=== PATIENT | male | born 1990 | race American Indian/Alaskan Native ===

== ENCOUNTER 2016-10-27 03:00 | Inpatient (IN) | payer MEDICAID, OTHER ==
[2016-10-27 03:02] VITALS: BMI 19.2
--- NOTE | 2016-10-27 03:28 | C.PDOC ---
History Of Present Illness Patient, with a past medical history of schizophrenia, is brought to the ED by ambulance for homicidal ideation. Patient has been smoking weed all day. He was found screaming at [facility]. Patient was saying he was going to kill everyone that hurts his loved ones. Patient denies all other complaints at this time. Time Seen by Provider: 10/27/16 03:28 Chief Complaint (Nursing): Psychiatric Evaluation History Per: Patient History/Exam Limitations: clinical condition Onset/Duration Of Symptoms: Other Current Symptoms Are (Timing): Still Present Suicide/Self Injury Attempted (Context): None Modifying Factor(s): None Severity: None Pain Scale Rating Of: 0 Associated Symptoms: Other Recent travel outside of the [place]: No Additional History Per: EMS Past Medical History Reviewed: Historical Data, Nursing Documentation, Vital Signs Vital Signs: Last Vital Signs Temp 98.2 F 10/27/16 03:11 Pulse 92 H 10/27/16 03:11 Resp 20 10/27/16 03:11 BP 147/85 10/27/16 03:11 Pulse Ox 99 10/27/16 04:13 - Medical History PMH: Schizophrenia Family History: States: Unknown Family Hx - Social History Hx Alcohol Use: Yes Hx Substance Use: Yes - Immunization History Hx Tetanus Toxoid Vaccination: No Hx Influenza Vaccination: No Hx Pneumococcal Vaccination: No Review Of Systems Constitutional: Negative for: Fever, Chills Cardiovascular: Negative for: Chest Pain Respiratory: Negative for: Shortness of Breath Gastrointestinal: Negative for: Nausea, Vomiting Psych: Positive for: Other (homicidal ideation). Negative for: Suicidal ideation Physical Exam - Physical Exam Appears: Non-toxic, No Acute Distress, Other (uncooperative) Skin: Warm, Dry Head: Atraumatic, Normacephalic Neck: Supple Chest: Symmetrical Cardiovascular: Rhythm Regular Respiratory: No Accessory Muscle Use Extremity: Normal ROM ED Course And Treatment - Laboratory Results Result Diagrams: 10/27/16 04:06 10/27/16 04:06 O2 Sat by Pulse Oximetry: 99 (RA) Pulse Ox Interpretation: Normal Progress Note: vitals stable. 4a vitals stable Disposition Counseled Patient/Family Regarding: Studies Performed, Diagnosis - Disposition Disposition Time: 03:28 Condition: UNKNOWN - Clinical Impression Clinical Impression: Acute undifferentiated schizophrenia - Scribe Statement The provider has reviewed the documentation as recorded by the Leydi Kemp Provider Attestation: All medical record entries made by the Scribe were at my direction and personally dictated by me. I have reviewed the chart and agree that the record accurately reflects my personal performance of the history, physical exam, medical decision making, and the department course for this patient. I have also personally directed, reviewed, and agree with the discharge instructions and disposition. Physician Patient Turnover Patient Signed Over To: Philip Barney DO Handoff Comments: pending [facility] screeners
[2016-10-27 03:59] LABS: RBC URINE 1 /hpf (0-3); URINE BILIRUBIN NEGATIVE (NEGATIVE); URINE BLOOD NEGATIVE (NEGATIVE); URINE COLOR Yellow (YELLOW); URINE GLUCOSE (UA) NORMAL (Normal); URINE KETONE NEGATIVE (NEGATIVE); URINE LEUKOCYTE ESTERASE NEG Leu/uL (Negative); URINE PROTEIN NEGATIVE (NEGATIVE); WBC URINE 2 /hpf (0-5)
[2016-10-27 04:13] LABS: BASO # 0.1 K/uL (0.0-0.2); BASO % 0.8 % (0.0-2.0); EOS # 0.1 K/uL (0.0-0.7); HEMATOCRIT 39.6 % (35.0-51.0); LYMPH # 2.2 K/uL (1.0-4.3); LYMPH % 19.4 % (20.0-40.0); MEAN CELL VOLUME 88.2 fL (80.0-94.0); MEAN CORPUSCULAR HEMOGLOBIN 29.8 pg (27.0-31.0); MEAN CORPUSCULAR HGB CONC 33.8 g/dL (33.0-37.0); MEAN PLATELET VOLUME 9.6 fL (7.2-11.7); MONO # 0.6 K/uL (0.0-0.8); MONO % 5.7 % (0.0-10.0); NRBC % 0.1 % (0.0-2.0); RED CELL DISTRIBUTION WIDTH 12.8 % (11.5-14.5); WHITE BLOOD COUNT 11.1 K/uL (4.8-10.8)
[2016-10-27 04:24] LABS: CHLORIDE 101 mmol/L (98-107); POTASSIUM 3.7 mmol/L (3.6-5.2); SODIUM 139 mmol/L (132-148)
[2016-10-27 04:26] LABS: BILIRUBIN,TOTAL 1.2 mg/dL (0.2-1.3); CARBON DIOXIDE 23 mmol/L (22-30); GFR AFRICAN-AMERICAN > 60
[2016-10-27 04:27] LABS: ALB/GLOB RATIO 1.5 (1.0-2.1); ALCOHOL SERUM < 10 mg/dl (0-10); ALKALINE PHOSPHATASE 71 U/L (38-126); ALT/SGPT 33 U/L (21-72); AST/SGOT 24 U/L (17-59); BLOOD UREA NITROGEN 5 mg/dL (9-20); CALCIUM 8.8 mg/dl (8.6-10.4); GLUCOSE,RANDOM 89 mg/dL (75-110); TOTAL PROTEIN 7.8 g/dL (6.3-8.3)
--- NOTE | 2016-10-27 11:50 | PCM.PSYCH ---
Initial Psychiatric Evaluation - Initial Psychiatric Evaluation Type of Admission: Voluntary Chief Complaint (in patient's own words): "I need a job" History of Present Illness and Precipitating Events: This is a 30-year-old mixed-race male, single, no child, unemployed. He lives with a friend in [place]. The patient is a very poor historian and has minimal insight. The patient was brought in by the police and EMS after his girlfriend called 911 because he was agitated, delusional thinking he was God or in touch with God and that God was telling him to do bad things. He was medicated in the ER and seen in the morning when he was somewhat calmer and more cooperative. He denied suicidal and homicidal ideations, but he was quite thought disordered, tangential/circumstantial and still grandiose. He admitted to being in another hospital recently and noncompliant with medications. However , he said that he now wants to continue medications and leave hospital to find a job. He claims his girlfriend is and he wants to be a father. Past psych history: 2 previous admissions one in 2014 at [facility] and 2 weeks ago in [place] at [facility]. He was on Zyprexa and some other medications that he couldn't remember. He is positive for marijuana but he denies drug and alcohol use. Medical history: Denies Family psych history: He denies Current Medications: Active Medications Generic Name Dose Route Start Last Admin Trade Name Freq PRN Reason Stop Dose Admin Benztropine Mesylate 1 mg 10/27/16 08:48 Cogentin PO Q1H PRN EPS, dystonia, max 4x/24h Haloperidol 5 mg 10/27/16 08:48 Haldol PO Q1H PRN agitation, max 4x/24h Lorazepam 2 mg 10/27/16 08:48 Ativan PO Q1H PRN anxiety/agitation max 4x/24h Risperidone 1 mg 10/27/16 10:00 10/27/16 09:58 Risperdal Tab PO 1 mg BID CORBY Administration Past Psychiatric History - Past Psychiatric History Previous Treatment History: Inpatient Pertinent Medical Hx (Current Medical&Sleep Prob, Allergies): Allergies Allergy/AdvReac Type Severity Reaction Status Date / Time No Known Allergies Allergy Verified 10/21/15 11:57 No Known Home Med 10/27/16 Review of Systems - Psychiatric Psychiatric: Abnormal Sleep Pattern, Anxiety, Behavioral Changes, Difficulty Concentrating, Irritability, Mood Swings. absent: Hallucinations, Homicidal Ideation, Suicidal Ideation Mental Status Examination - Personal Presentation Personal Presentation: Looks older than stated age - Affect Affect: Constricted - Motor Activity Motor Activity: Psychomotor Agitation - Reliability in Providing Information Reliability in Providing Information: Fair - Speech Speech: Disorganized - Mood Mood: Other (irate and labile) - Formal Thought Process Formal Thought Process: Delusions, Paranoia, Loosening of associations, Circumstantial - Hallucinations/Delusions Delusions: Granduer - Cognitive Functions Orientation: Person, Place, Time Sensorium: Alert Attention/Concentration: Easily distracted Abstract Thinking: [place] Estimate of Intelligence: Average Judgement: Imparied, as evidence by: Poor judgement, Intact, as evidence by: Insight regarding need for hospitalization Memory: Recent intact, as evidence by: Ability to recall events of the day, Remote impaired as evidenced by: Inability to recall sig life events - Risk Risk: Diminished functioning - Strength & Assets Inventory Strength & Assets Inventory: Family support, Cooperative - Limitations Limitations: Living alone DSM 5 DX - DSM 5 DSM 5 Diagnosis: Bipolar I d/o - manic r/o schizoaffective d/o - bipolar type Cannabis use d/o - severe r/o synthetic cannabis use - Recommended/Plan of Treatment Treatment Recommendations and Plan of Treatment: Abilify 10 mg but will increase Abilify Maintena when he si on 20 mg Transfer to Support and psychoed, attend groups and activities [place] and CBt Family meeting As needed meds 33 min Projected ELOS: 5 days Prognosis: fair to good Discharge Plan and Discharge Criteria: No agitation, eliud refer to [facility]
[2016-10-27 14:56] VITALS: O2SAT 98
[2016-10-28] MEDS: Divalproex 500 mg DR Tab PO SCH ×2 (09:26→17:56)
--- NOTE | 2016-10-28 11:17 | PCM.PYCHPN ---
Psychiatric Progress Note - Psychiatric Progress Note Patient seen today, length of contact: 15 min Patient Chief Complaint: 'I want to the [place] and [place] to get my body's pieces.' Problems Identified/Issues Discussed: Patient seen and evaluated, chart reviewed and discussed with the nurse. Patient remained very disorganized and internally preoccupied. He states that, ' I want to go to [place], [place] and [place] to get my body's pieces.' Patient still appears paranoid, psychotic and delusional. He reports He still reports of hearing voices telling him to do different things but not to harm himself or harm anyone. He is taking medication and denies any side effects. Supportive therapy and psychoeducation were given. Medication Change: Yes (Start Prolixin, Start Cogentin) Medical Record Reviewed: Yes Mental Status Examination - Cognitive Function Orientation: Person, Place, Time Memory: Intact Attention: Poor Concentration: Poor Association: Loose Fund of Knowledge: Poor - Mood Mood: Anxious, Other (irate and labile) - Affect Affect: Broad - Speech Speech: Pressured - Formal Thought Process Formal Thought Process: Hallucinations, Delusions, Paranoia, Loosening of associations, Flight of ideas, Circumstantial - Suicidal Ideation Suicidal Ideation: No - Homicidal Ideation Homicidal Ideation: No Goal/Treatment Plan - Goal/Treatment Plan Need for Continued Stay: Discharge may exacerbated symptoms, Severe functional impairment Progress Toward Problem(s) and Goals/Treatment Plan: Bipolar I d/o - manic r/o schizoaffective d/o - bipolar type Cannabis use d/o - severe r/o synthetic cannabis use Abilify 10 mg Abilify Maintena Prolixin 5 mg by mouth twice a day Cogentin 1 mg by mouth twice a day Depakote 500 mg by mouth twice a day - Smoking Cessation Smoking Cessation Initiated: No
[2016-10-29] MEDS: Divalproex 500 mg DR Tab PO SCH ×2 (09:41→18:20)
--- NOTE | 2016-10-29 12:30 | PCM.PYCHPN ---
Psychiatric Progress Note - Psychiatric Progress Note Patient seen today, length of contact: 15 min Patient Chief Complaint: I want to leave Problems Identified/Issues Discussed: Patient seen and evaluated, chart reviewed and discussed with the nurse. As per the staff patient remained up whole night and was pacing back and forth in the hallways. Patient still appears paranoid, psychotic and delusional. Patient remained disorganized and internally preoccupied with his travel to the unknown countries. He reports improvement in his voices and denies any suicidal ideation or homicidal ideation. He is taking medication and denies any side effects. Supportive therapy and psychoeducation were given. Medication Change: Yes (start Klonopin) Medical Record Reviewed: Yes Mental Status Examination - Cognitive Function Orientation: Person, Place, Time Memory: Intact Attention: Poor Concentration: Poor Association: Loose Fund of Knowledge: Poor - Mood Mood: Anxious, Other (irate and labile) - Affect Affect: Broad - Speech Speech: Loud - Formal Thought Process Formal Thought Process: Hallucinations, Delusions, Paranoia, Loosening of associations, Circumstantial - Suicidal Ideation Suicidal Ideation: No - Homicidal Ideation Homicidal Ideation: No Goal/Treatment Plan - Goal/Treatment Plan Need for Continued Stay: Discharge may exacerbated symptoms, Severe functional impairment, Other Progress Toward Problem(s) and Goals/Treatment Plan: Bipolar I d/o - manic r/o schizoaffective d/o - bipolar type Cannabis use d/o - severe r/o synthetic cannabis use Abilify 10 mg Abilify Maintena Prolixin 5 mg by mouth twice a day Cogentin 1 mg by mouth twice a day Depakote 500 mg by mouth twice a day Klonopin 1 mg by mouth twice a day - Smoking Cessation Smoking Cessation Initiated: No
[2016-10-30] MEDS ORDERED: DiphenhydrAMINE 50 mg/ml Inj IM STA (02:20)
[2016-10-30] MEDS: Divalproex 500 mg DR Tab PO SCH (10:35)
--- NOTE | 2016-10-30 14:41 | PCM.PYCHPN ---
Psychiatric Progress Note - Psychiatric Progress Note Patient seen today, length of contact: 26 min Patient Chief Complaint: "I feel calm" Problems Identified/Issues Discussed: The pt is seen, chart reviewed, case discussed with staff. Pt continues to be disoriented and disorganized. He was agitated last night and had unsteady gait due to prn meds. Pt states that there are spirits that talk through him. He states the spirits give him the strength to help people that cannot help themselves. He states he feels calm and relaxed. Pt slept well the night before. His meds are all decreased today due to oversedation. He was better at night, per staff. He was not delirious and VS were stable. [employer] spoke to his mo with his permission. She agreed to come for a meeting Wed at 11 am Aftercare discussed, support and psychoeducation given. As per notes, he is currently on probation for possession of a machete. It is not clear where he can go if there is a warrant for his arrest Medical Problems: Denies Medication Change: Yes (hold most meds) Medical Record Reviewed: Yes Mental Status Examination - Cognitive Function Orientation: Person, Place, Time Memory: Intact Attention: Poor Concentration: Poor Association: Loose Fund of Knowledge: Poor - Mood Mood: Anxious, Other (irritable and labile) - Affect Affect: Broad - Speech Speech: Appropriate - Formal Thought Process Formal Thought Process: Hallucinations, Delusions, Loosening of associations, Flight of ideas, Circumstantial - Suicidal Ideation Suicidal Ideation: No - Homicidal Ideation Homicidal Ideation: No Goal/Treatment Plan - Goal/Treatment Plan Need for Continued Stay: Discharge may exacerbated symptoms, Severe functional impairment, Other Progress Toward Problem(s) and Goals/Treatment Plan: [facility] when available As needed meds Support and psychoeducation Attend groups and activities [place] and CBT Family meeting Labs and VS Meds held but will resume dc Klonopin and prolixin - he is too sedated and Parkinsonized. - Smoking Cessation Smoking Cessation Initiated: Yes
[2016-10-31] MEDS ORDERED: ABILIFY MAINTENA 400 MG IM ONE ×2 (10:00→13:00)
[2016-10-31] MEDS: Divalproex 500 mg DR Tab PO SCH ×2 (10:04→17:22)
--- NOTE | 2016-10-31 16:03 | PCM.PYCHPN ---
Psychiatric Progress Note - Psychiatric Progress Note Patient seen today, length of contact: 25 min Patient Chief Complaint: "I'm fine" Problems Identified/Issues Discussed: Pt is seen, chart reviewed, case discussed. Pt states that his mood is okay today. He remains anxious. Pt denies shaking or other symptoms. When asked about his plan, he states that he plans on changing the world's pollution and . Aftercare discussed, support and psychoeducation given. Medical Problems: Denies Medication Change: Yes (Propranolol Hcl, scheduled to receive Abilify maintence depot today ) Medical Record Reviewed: Yes Mental Status Examination - Cognitive Function Orientation: Person, Place, Situation, Time Memory: Intact Attention: WNL Concentration: Poor Association: Loose Fund of Knowledge: Poor - Mood Mood: Anxious - Affect Affect: Broad - Speech Speech: Appropriate - Formal Thought Process Formal Thought Process: Hallucinations, Delusions, Flight of ideas, Circumstantial - Suicidal Ideation Suicidal Ideation: No - Homicidal Ideation Homicidal Ideation: No Goal/Treatment Plan - Goal/Treatment Plan Need for Continued Stay: Discharge may exacerbated symptoms, Severe functional impairment, Other Progress Toward Problem(s) and Goals/Treatment Plan: Abilify Maintenance when available Started Propranolol Hcl As needed meds Support and psychoeducation Attend groups and activities [place] and CBT Family meeting Estimated Date of D/C: 11/03/16 - Smoking Cessation Smoking Cessation Initiated: Yes
[2016-11-01] MEDS: Divalproex 500 mg DR Tab PO SCH ×2 (17:37→21:52)
--- NOTE | 2016-11-01 22:54 | PCM.PYCHPN ---
Psychiatric Progress Note - Psychiatric Progress Note Patient seen today, length of contact: 28 min Patient Chief Complaint: "I need to leave" Problems Identified/Issues Discussed: Pt is seen, chart reviewed, case discussed. We had a meeting with his mother who came early and reported that she had been visiting him and that he was still manic and delusional. At the meeting, he, again, showed that he doesn't have enough insight and was grandiose, religiously-preoccupied and irate. He believes he is here to save other patients. He implied he won;t take meds and that he is not sick. Psychoed and support given by everyone. Despite lack of commitment he does take his meds and got the Abilify shot. Medical Problems: Denies Medication Change: Yes (increase doses) Medical Record Reviewed: Yes Mental Status Examination - Cognitive Function Orientation: Person, Place, Situation, Time Memory: Intact Attention: WNL Concentration: Poor Association: Loose Fund of Knowledge: Poor - Mood Mood: Anxious - Affect Affect: Broad - Speech Speech: Appropriate - Formal Thought Process Formal Thought Process: Hallucinations, Delusions, Flight of ideas, Circumstantial - Suicidal Ideation Suicidal Ideation: No - Homicidal Ideation Homicidal Ideation: No Goal/Treatment Plan - Goal/Treatment Plan Need for Continued Stay: Discharge may exacerbated symptoms, Severe functional impairment, Other Progress Toward Problem(s) and Goals/Treatment Plan: Abilify Maintenance when available Started Propranolol Hcl As needed meds Support and psychoeducation Attend groups and activities [place] and CBT Family meeting Estimated Date of D/C: 11/03/16
[2016-11-02] MEDS: Divalproex 500 mg DR Tab PO SCH ×3 (09:42→17:21)
--- NOTE | 2016-11-02 22:26 | PCM.PYCHPN ---
Psychiatric Progress Note - Psychiatric Progress Note Patient seen today, length of contact: 17 min Patient Chief Complaint: "I'm fine, I'd like to leave tomorrow" Problems Identified/Issues Discussed: The pt is seen, chart reviewed, case discussed with staff. The pt is compliant with medications and reports no side-effects. Symptoms are improving but needs more time to stabilize. Still hypomanic After care discussed, support and psychoeducation given. Mo wants to take him tomorrow [place] and CBT used briefly. Medical Problems: Denies Medication Change: Yes Medical Record Reviewed: Yes Mental Status Examination - Cognitive Function Orientation: Person, Place, Situation, Time Memory: Intact Attention: WNL Concentration: Poor Association: Loose Fund of Knowledge: Poor - Mood Mood: Anxious - Affect Affect: Broad - Speech Speech: Appropriate - Formal Thought Process Formal Thought Process: Delusions, Circumstantial - Suicidal Ideation Suicidal Ideation: No - Homicidal Ideation Homicidal Ideation: No Goal/Treatment Plan - Goal/Treatment Plan Need for Continued Stay: Discharge may exacerbated symptoms, Severe functional impairment, Other Progress Toward Problem(s) and Goals/Treatment Plan: Abilify Maintena given Abilify 30 mg nother 10 days Propranolol Hcl As needed meds Support and psychoeducation Attend groups and activities [place] and CBT Family meeting Estimated Date of D/C: 11/03/16
[2016-11-03 07:46] VITALS: BP 108/58; PULSE 69; RESP 19; TEMP 97.7
--- NOTE | 2016-11-03 09:41 | PCM.PYCHDC ---
Mental Status Examination - Mental Status Examination Orientation: Person, Place, Situation, Time Memory: Intact Mood: Anxious Affect: Constricted Speech: Pressured (less so) Attention: Poor Concentration: Poor Association: WNL Fund of Knowledge: WNL Formal Thought Process: No Impairment Suicidal Ideation: No Current Homicidal Ideation?: No Discharge Summary - Discharge Note Reason for Hospitalization: Manic episode; agitation, aggression, grandiosity. Psychiatric History (includes Medical, Family, Personal Hx): 2 more admissions. Bipolar Consultations:: List each consultation separately and include: 1. Reason for request. 2. Findings. 3. Follow-up Summary of Hospital Course include:: 1. Description of specific treatment plan utilized for patients during their course of treatmen. 2. Summarize the time- course for resolution of acute symptoms and/or regressed behaviors. 3. Describe issues identified and worked on during hospitalization. 4. Describe medication utilized. 5. Describe medical problems identified and treated. 6. Reassessment of suicide risk Summary of Hospital Course: He is seen again, case discussed. On admission: This is a 30-year-old mixed-race male, single, no child, unemployed. He lives with a friend in [place]. The patient is a very poor historian and has minimal insight. The patient was brought in by the police and EMS after his girlfriend called 911 because he was agitated, delusional thinking he was God or in touch with God and that God was telling him to do bad things. He was medicated in the ER and seen in the morning when he was somewhat calmer and more cooperative. He denied suicidal and homicidal ideations, but he was quite thought disordered, tangential/circumstantial and still grandiose. He admitted to being in another hospital recently and noncompliant with medications. However , he said that he now wants to continue medications and leave hospital to find a job. He claims his girlfriend is and he wants to be a father. Past psych history: 2 previous admissions one in [address] [facility] and 2 weeks ago in [facility]. He was on Zyprexa and some other medications that he couldn't remember. He is positive for marijuana but he denies drug and alcohol use. Medical history: Denies Family psych history: He denies Hospital course: The pt was admitted and started on treatment with psychotherapy, support, psychoeducation and medications. [place] and CBT used. The pt attended groups and activities, as well as milieu therapy. family meeting held with mother. All the risks and benefits of medications are discussed and the patient understood and agreed. After care discussed with the patient. He agreed to go to [facility] He improved slowly and was quite delusional and manic during his stay. Preoccupied with restorationism/spiritual themes. His substance use is also addressed with DC He was not 100% well on d/c but he refused to stay longer and his mo wanted him for the . risks of early leave discussed. He is given an Abilify Maintena shot due to poor adherence - Final Diagnosis (DSM 5) Condition upon Discharge: GOOD DSM 5: Bipolar I - manic, severe Cannabis use d/o Disposition: HOME/ ROUTINE Follow-up Treatment Plan: Continue below medications after discharge. Due to a glitch in EMR not all meds are uploaded here, ie Depakote 1500 mg/d Blood work in [facility] Follow after care plan as discussed at [facility] Use relapse prevention skills Return to ER or call 911 if suicidal, homicidal or symptoms relapse. Stay away from stress, alcohol and drugs. Prescriptions/Medication Reconciliation: ARIPiprazole [Abilify] 30 mg PO QPM #10 tab traZODone [Desyrel] 100 mg PO HS PRN #30 tab PRN Reason: Insomnia - Smoking Cessation Smoking Cessation Medication prescribed: No - Antipsychotic Medications Pt discharged on 2 or more routine antipsychotic medications: No
[2016-11-03] MEDS: Divalproex 500 mg DR Tab PO SCH (10:15)
== END 2016-11-03 12:25 | disposition home or self-care (01) | DRG 430 ==
LOC: C.ER 03:00 → C.9E 11:21 → C.5E 11:21
PROVIDERS: ADMIT Psychiatry & Neurology Psychiatry; ATTEND Psychiatry & Neurology Psychiatry
PROC: GZ56ZZZ Individual Psychotherapy, Supportive (ICD-10-PCS; principal; 2016-10-27)
PROC: GZ58ZZZ Individual Psychotherapy, Cognitive-Behavioral (ICD-10-PCS; 2016-10-27)
DX: F25.0 Schizoaffective disorder, bipolar type (principal); Z91.14 Patient's other noncompliance with medication regimen; F12.90 Cannabis use, unspecified, uncomplicated